=== PATIENT | female | born 1995 | race Caucasian/White ===

== ENCOUNTER 2017-10-03 21:33 | Emergency (ER) | payer MEDICAID, OTHER ==
--- NOTE | 2017-10-03 22:00 | EDM.PDOC ---
ED HPI GENERAL MEDICAL PROBLEM - General Chief Complaint: Head Injury Stated Complaint: FELL OFF A HORSE Time Seen by Provider: 10/03/17 21:59 Source of Information: Reports: Patient - History of Present Illness INITIAL COMMENTS - FREE TEXT/NARRATIVE: HISTORY AND PHYSICAL: History of present illness: [Patient fell off a horse within 30-60 minutes prior to arrival she did land on her bottom first but also struck her head and had some slight blurring of vision for a few minutes afterwards doing well arrives by private vehicle ambulatory complains of headache as well as neck pain she rates 4 out of 10 nonradiating for both headache and C-spine pain No fever nausea vomiting chills sweats no loss of consciousness] Review of systems: As per history of present illness and below otherwise all systems reviewed and negative. Past medical history: As per history of present illness and as reviewed below otherwise noncontributory. Surgical history: As per history of present illness and as reviewed below otherwise noncontributory. Social history: No reported history of drug or alcohol abuse. Family history: As per history of present illness and as reviewed below otherwise noncontributory. Physical exam: HEENT: Atraumatic, normocephalic, pupils reactive, negative for conjunctival pallor or scleral icterus, mucous membranes moist, throat clear, neck supple, nontender, trachea midline. Lungs: Clear to auscultation, breath sounds equal bilaterally, chest nontender. Heart: S1S2, regular, negative for clicks, rubs, or JVD. Abdomen: Soft, nondistended, nontender. Negative for masses or hepatosplenomegaly. Negative for costovertebral tenderness. Pelvis: Stable nontender. Genitourinary: Deferred. Rectal: Deferred. Extremities: Atraumatic, negative for cords or calf pain. Neurovascular unremarkable. Neuro: Awake, alert, oriented. Cranial nerves II through XII unremarkable. Cerebellum unremarkable. Motor and sensory unremarkable throughout. Exam nonfocal. Diagnostics: [CT no contrast Cervical spine no contrast Patient refuses hCG ] Therapeutics: Rest ice ibuprofen Impression: [ concussion ]-no loss of consciousness Definitive disposition and diagnosis as appropriate pending reevaluation and review of above. Right Arm Pain Score (Numeric/FACES): 6 - Related Data Allergies Allergy/AdvReac Type Severity Reaction Status Date / Time No Known Allergies Allergy Verified 10/03/17 21:47 Home Meds: Home Meds . [No Known Home Meds] 10/03/17 [History] Past Medical History - Past Health History Medical/Surgical History: Denies Medical/Surgical History Social & Family History - Tobacco Use Smoking Status *Q: Current Every Day Smoker Years of Tobacco use: 5 Packs/Tins Daily: 0.5 ED ROS GENERAL - Review of Systems Review Of Systems: See Below ED EXAM, HEAD INJURY - Physical Exam Exam: See Below Course - Vital Signs Last Recorded V/S: Last Vital Signs Temp 98.8 F 10/03/17 21:48 Pulse 95 10/03/17 21:48 Resp 18 10/03/17 21:48 BP 170/87 H 10/03/17 21:48 Pulse Ox 100 10/03/17 21:48 - Orders/Labs/Meds Orders: Active Orders 24 hr Category Date Time Status Cervical Spine wo Cont [CT] Stat Exams 10/03/17 21:59 Taken Head wo Cont [CT] Stat Exams 10/03/17 21:59 Taken Departure - Departure Time of Disposition: 23:14 Disposition: Home, Self-Care 01 Condition: Good Clinical Impression: Concussion with no loss of consciousness - Discharge Information Referrals: PCP,None [Primary Care Provider] - Forms: ED Department Discharge Additional Instructions: The following information is given to patients seen in the emergency department who are being discharged to home. This information is to outline your options for follow-up care. We provide all patients seen in our emergency department with a follow-up referral. The need for follow-up, as well as the timing and circumstances, are variable depending upon the specifics of your emergency department visit. If you don't have a primary care physician on staff, we will provide you with a referral. We always advise you to contact your personal physician following an emergency department visit to inform them of the circumstance of the visit and for follow-up with them and/or the need for any referrals to a consulting specialist. The emergency department will also refer you to a specialist when appropriate. This referral assures that you have the opportunity for follow-up care with a specialist. All of these measure are taken in an effort to provide you with optimal care, which includes your follow-up. Under all circumstances we always encourage you to contact your private physician who remains a resource for coordinating your care. When calling for follow-up care, please make the office aware that this follow-up is from your recent emergency room visit. If for any reason you are refused follow-up, please contact the [facility] emergency department at and asked to speak to the emergency department charge nurse. - My Orders Last 24 Hours: My Active Orders 10/03/17 21:59 Cervical Spine wo Cont [CT] Stat Head wo Cont [CT] Stat - Assessment/Plan Last 24 Hours: My Active Orders 10/03/17 21:59 Cervical Spine wo Cont [CT] Stat Head wo Cont [CT] Stat
--- NOTE | 2017-10-04 09:40 | CT ---
EXAM DATE: 10/03/17 PATIENT'S AGE: 22 Patient: ANGEL ZARCO Facility: [place], [place] Site . Site : 1995 Study: CT Spine Cervical [id number] 10:46:54 PM Ordering Physician: Doctor Mortensen Final Report: INDICATION: Injury TECHNIQUE: CT cervical spine without contrast. COMPARISON: None available FINDINGS: There is mild reversal of the cervical lordosis centered at C5-6. The craniocervical and atlantoaxial alignments are near anatomical. There is no evidence of an acute cervical spine fracture. There is no significant precervical soft tissue swelling. IMPRESSION: No evidence of an acute cervical spine fracture. Dictated by Timmy Mejia MD @ 10/03/2017 11:06:15 PM Please note that all CT scans at this facility use dose modulation, iterative reconstruction, and/or weight-based dosing when appropriate to reduce radiation dose to as low as reasonably achievable. Dictated by: Timmy Mejia MD @ 10/03/2017 23:06:27 (Electronic Signature) Report Signed by Proxy. [facility]
--- NOTE | 2017-10-04 09:41 | CT ---
EXAM DATE: 10/03/17 PATIENT'S AGE: 22 Patient: ANGEL ZARCO Facility: [place], [place] Site . Site : 1995 Study: CT Head [id number] 10:47:35 PM Ordering Physician: Doctor Mortensen Final Report: INDICATION: Injury TECHNIQUE: CT head without contrast. COMPARISON: None available FINDINGS: The ventricles and sulci are within normal limits. There is no mass effect or midline shift. There is no loss of chung-white differentiation. A small low- density focus at the inferior aspect of the left basal ganglia probably represents a dilated perivascular space. There is no evidence of a gross acute intracranial hemorrhage. No acute calvarial fracture is seen. There are maxillary sinus mucosal retention cysts or polyps. The mastoid air cells are clear. The visualized orbits are within normal limits. IMPRESSION: No evidence of an acute intracranial hemorrhage, mass effect or loss of chung- white differentiation. Dictated by Timmy Mejia MD @ 10/03/2017 11:00:30 PM Please note that all CT scans at this facility use dose modulation, iterative reconstruction, and/or weight-based dosing when appropriate to reduce radiation dose to as low as reasonably achievable. Dictated by: Timmy Mejia MD @ 10/03/2017 23:00:38 (Electronic Signature) Report Signed by Proxy. [facility]
== END 2017-10-03 23:21 | disposition home or self-care (01) ==
LOC: MW.ED 21:33
DX: S06.0X0A Concussion without loss of consciousness, initial encounter (principal); F17.210 Nicotine dependence, cigarettes, uncomplicated; W18.00XA Striking against unspecified object with subsequent fall, initial encounter
CPT/HCPCS: 70450; 70450-26; 72125; 72125-26; 99282; 99283-25